=== PATIENT | female | born 1990 | race African-American/Black ===

== ENCOUNTER 2017-06-12 19:12 | Emergency (ER) | payer OTHER ==
[2017-06-12 19:32] VITALS: BP 161/94; PULSE 87; TEMP 99.2; BMI 33.3
[2017-06-12] MEDS ORDERED: PANTOPRAZOLE 40 MG TABLET (FP) PO ONE (20:56)
--- NOTE | 2017-06-12 20:56 | PDOC ---
History of Present Illness - General Chief Complaint: Sore Throat Stated Complaint: LUMP IN THROAT Time Seen by Provider: 06/12/17 20:22 History Source: Patient, Parent(s) (Mother) Exam Limitations: No Limitations - History of Present Illness Initial Comments: 06/12/17 20:51 27yo Female patient with no significant past medical history presents to ED c/o feeling of lump in throat. Patient states symptoms have been ongoing for the past year. She was put on anti-acid medication by director enterprise systems but unable to refill medications due to insurance problems. She denies any other complaints at this time. LNMP: 05-07-2017. Severity: moderate Modifying Factors: worse with: cold therapy, eating, immobilization, medication , movement, rest, other Associated Symptoms: denies: denies symptoms, chest pain, cough, diaphoresis, fever/chills, headaches, loss of appetite, malaise, nausea/vomiting, rash, seizure, shortness of breath, syncope, weakness, other Past History - Travel Traveled outside of the country in the last 30 days: No Close contact w/someone who was outside of country & ill: No - Past Medical History Allergies/Adverse Reactions: Allergies Allergy/AdvReac Type Severity Reaction Status Date / Time Penicillins Allergy Verified 06/12/17 19:32 Home Medications: Ambulatory Orders Lorazepam 0.5 mg PO TID PRN #9 tablet MDD 3 tabs 06/12/17 Pantoprazole Sodium 40 mg PO DAILY #20 tablet. 06/12/17 GI Disorders: Yes (acid reflux) - Suicide/Smoking/Psychosocial Hx Smoking History: Current some day smoker Number of Cigarettes Smoked Daily: 1 Information on smoking cessation initiated: No Substance Use Type: Marijuana Review of Systems - Review of Systems Able to Perform ROS?: Yes Is the patient limited Syriac proficient: No Constitutional: No: Chills, Fever HEENTM: Yes: Throat Pain. No: Throat Swelling All Other Systems: Reviewed and Negative *Physical Exam - Vital Signs Last Vital Signs Temp Pulse Resp BP Pulse Ox 99.2 F 87 18 161/94 99 06/12/17 19:29 06/12/17 19:29 06/12/17 19:29 06/12/17 19:29 06/12/17 19:29 - Physical Exam General Appearance: Yes: Nourished, Appropriately Dressed. No: Apparent Distress, Mild Distress, Moderate Distress, Severe Distress HEENT: positive: EOMI, PETAR, Normal ENT Inspection, Normal Voice, Symmetrical, TMs Normal, Pharynx Normal. negative: Pharyngeal Erythema, Tonsillar Exudate, Tonsillar Erythema, Nasal Congestion, Rhinorrhea, TM Bulging, TM Dull, TM Erythema Neck: positive: Trachea midline, Normal Thyroid, Supple. negative: Rigid, Stridor, Lymphadenopathy (R), Lymphadenopathy (L), Rigidity Respiratory/Chest: positive: Lungs Clear, Normal Breath Sounds. negative: Chest Tender, Respiratory Distress, Accessory Muscle Use, Labored Respiration, Rapid RR, Wheezing Cardiovascular: positive: Regular Rhythm, Regular Rate Extremity: positive: Normal Capillary Refill, Normal Inspection, Normal Range of Motion. negative: Pedal Edema, Swelling, Calf Tenderness, Erythema Integumentary: positive: Normal Color, Dry, Warm Neurologic: positive: sports editor II-XII NML intact, Fully Oriented, Alert, Normal Mood/ Affect, Normal Response, Motor Strength 5/5 *DC/Admit/Observation/Transfer Diagnosis at time of Disposition: GERD (gastroesophageal reflux disease) Qualifiers: Esophagitis presence: without esophagitis Qualified Code(s): K21.9 - Gastro- esophageal reflux disease without esophagitis - Discharge Dispostion Disposition: HOME Condition at time of disposition: Stable Admit: No - Prescriptions Prescriptions: Lorazepam 0.5 mg PO TID PRN #9 tablet MDD 3 tabs PRN Reason: Anxiety Pantoprazole Sodium 40 mg PO DAILY #20 tablet.dr - Referrals Referrals: STAFF,NOT ON [Primary Care Provider] - Berhane Wilkinson MD [Staff Physician] - - Patient Instructions Printed Discharge Instructions: DI for Gastroesophageal Reflux Disease (GERD) Additional Instructions: Follow up with Dr. Wilkinson (Gastroenterology) this week for further evaluation. Take medications as prescribed. Do not drive, drink alcohol or operate heavy machinery while taking Ativan. Follow up with your primary care provider as well. Avoid spicy foods, alcohol, Motrin, Aspirin at this time. Print Language: LATVIAN
[2017-06-12] MEDS ORDERED: PANTOPRAZOLE 40 MG TABLET (FP) ONE (21:00)
== END 2017-06-12 21:02 | disposition home or self-care (01) ==
LOC: JERFT 19:12
DX: K21.9 Gastro-esophageal reflux disease without esophagitis (principal)
CPT/HCPCS: 99281-25

== ENCOUNTER 2019-05-19 10:07 | Emergency (ER) | payer OTHER ==
[2019-05-19 10:21] VITALS: BMI 30.4
[2019-05-19] MEDS ORDERED: METOCLOPRAMIDE HCL INJECTION 10 MG/2 ML VIAL IVPB ONE (10:40)
[2019-05-19] MEDS ORDERED: SODIUM CHLORIDE 1,000 ML IV STA (10:40)
--- NOTE | 2019-05-19 10:47 | PDOC ---
History of Present Illness - General Chief Complaint: Lightheaded Stated Complaint: 13WKS/ DIZZINESS Time Seen by Provider: 05/19/19 10:31 History Source: Patient Exam Limitations: Clinical Condition - History of Present Illness Initial Comments: 05/19/19 10:42 Patient with history of asthma and vertigo at 13 weeks present with complaint of 2 weeks history of persistent dizziness, photophobia and lightheadedness. Patient reported used to take meclizine for her vertigo which she was advised to stop after getting . Patient not currently on any medication for vertigo. Denies nausea, vomiting, headache, chest pain, shortness of breath. Denies united frequency or dysuria, fever or chills. Denies abdominal pains or vaginal bleeding or discharge Timing/Duration: other (2 weeks) Past History - Past Medical History Allergies/Adverse Reactions: Allergies Allergy/AdvReac Type Severity Reaction Status Date / Time metronidazole [From Flagyl] Allergy Verified 05/19/19 10:18 Penicillins Allergy Verified 04/06/18 16:18 Home Medications: Ambulatory Orders Metoclopramide HCl [Reglan -] 10 mg PO Q8H PRN #21 tablet 05/19/19 Asthma: Yes COPD: No GI Disorders: Yes (acid reflux) - Suicide/Smoking/Psychosocial Hx Smoking History: Never smoked Number of Cigarettes Smoked Daily: 1 Hx Alcohol Use: No Drug/Substance Use Hx: No Substance Use Type: Marijuana Review of Systems - Review of Systems Able to Perform ROS?: Yes Is the patient limited Martiniquais proficient: No Constitutional: No: Chills, Fever, Malaise HEENTM: Yes: Symptoms Reported, See HPI, Blurred Vision. No: Eye Pain, Tearing , Recent change in vision, Double Vision, Cataracts, Ear Pain, Ocular Prothesis , Ear Discharge, Nose Pain, Nose Congestion, Tinnitus, Nose Bleeding, Hearing Loss, Throat Pain, Throat Swelling, Mouth Pain, Dental Problems, Difficulty Swallowing, Mouth Swelling, Other Respiratory: No: Symptoms reported, See HPI, Cough, Orthopnea, Shortness of Breath, SOB with Exertion, SOB at Rest, Stridor, Wheezing, Productive cough, Hemoptysis, Other Cardiac (ROS): No: Symptoms Reported, See HPI, Chest Pain, Edema, Irregular Heart Rate, Lightheadedness, Palpitations, Syncope, Chest Tightness, Other ABD/GI: Yes: Symptoms Reported. No: See HPI, Vomiting, Abdominal cramping : No: Symptoms Reported, Burning, Dysuria, Discharge, Frequency, Other ( vaginal bleeding) Musculoskeletal: No: Symptoms Reported Integumentary: No: Symptoms Reported Neurological: Yes: Symptoms reported, See HPI, Dizziness. No: Headache, Numbness, Paresthesia, Weakness All Other Systems: Reviewed and Negative *Physical Exam - Vital Signs Last Vital Signs Temp Pulse Resp BP Pulse Ox 98.5 F 111 H 17 135/79 98 05/19/19 10:18 05/19/19 10:18 05/19/19 10:18 05/19/19 10:18 05/19/19 10:18 - Physical Exam General Appearance: Yes: Nourished, Appropriately Dressed. No: Mild Distress HEENT: positive: PETAR, Normal ENT Inspection, TMs Normal, Pharynx Normal Neck: positive: Supple Respiratory/Chest: positive: Lungs Clear, Normal Breath Sounds. negative: Respiratory Distress, Accessory Muscle Use Cardiovascular: positive: Regular Rhythm, Regular Rate. negative: Murmur Gastrointestinal/Abdominal: positive: Normal Bowel Sounds, Flat, Soft. negative : Tender Musculoskeletal: positive: Normal Inspection Extremity: positive: Normal Capillary Refill, Normal Inspection Integumentary: positive: Normal Color Neurologic: positive: meeting facilitator II-XII NML intact, Fully Oriented, Alert, Normal Mood/ Affect, Normal Response ED Treatment Course - LABORATORY CBC & Chemistry Diagram: 05/19/19 11:05 05/19/19 11:05 Medical Decision Making - Medical Decision Making 05/19/19 10:44 05/19/19 10:42 Patient with history of asthma and vertigo at 13 weeks present with complaint of 2 weeks history of persistent dizziness, photophobia and lightheadedness. Patient reported used to take meclizine for her vertigo which she was advised to stop after getting . Patient not currently on any medication for vertigo. Denies nausea, vomiting, headache, chest pain, shortness of breath. Denies united frequency or dysuria, fever or chills. Denies abdominal pains or vaginal bleeding or discharge Normal neuro exam. Patient in no acute distress. Patient tachycardic. Symptoms likely vertigo. CBC, CMP, UA urine culture labs ordered. IV hydration with 1 L normal saline and Reglan 10 mg IV ordered for vertigo. Reassess after medication 05/19/19 13:28 CBC and chemistry lab are unremarkable. UA with no acute pathology. Patient reported improved symptoms with IV hydration and Reglan. Patient reported pressure behind bilateral eyes which is caused by sinus congestion. Patient advised on mist therapy to help with sinus congestion and stable for discharge on Reglan when necessary for vertigo with OB follow-up *DC/Admit/Observation/Transfer Diagnosis at time of Disposition: Orthostatic dizziness, Vertigo Sinusitis Qualifiers: Sinusitis location: unspecified location Chronicity: acute Recurrence: non- recurrent Qualified Code(s): J01.90 - Acute sinusitis, unspecified - Discharge Dispostion Disposition: HOME Condition at time of disposition: Stable Decision to Admit order: No - Prescriptions Prescriptions: Metoclopramide HCl [Reglan -] 10 mg PO Q8H PRN #21 tablet PRN Reason: vertigo - Referrals - Patient Instructions Printed Discharge Instructions: DI for Vertigo, DI for Sinusitis Additional Instructions: Take prescribed medication as needed for vertigo. Increase fluid intake. Use mist therapy as discussed for sinus congestion. Follow-up with the CORPORATE STRATEGIST - Post Discharge Activity
[2019-05-19] MEDS ORDERED: METOCLOPRAMIDE HCL INJECTION 10 MG/2 ML VIAL ONE (11:18)
[2019-05-19 11:21] LABS: URINE APPEARANCE TURBID; URINE BILIRUBIN NEGATIVE (NEGATIVE); URINE COLOR YELLOW; URINE GLUCOSE (UA) NEGATIVE (NEGATIVE); URINE KETONE NEGATIVE (NEGATIVE); URINE LEUK ESTERASE NEGATIVE (NEGATIVE); URINE NITRITE NEGATIVE (NEGATIVE); URINE PROTEIN NEGATIVE (NEGATIVE); URINE UROBILINOGEN 0.2 mg/dL (0.2-1.0)
[2019-05-19 11:26] LABS: BASO % 0.3 % (0-2.0); EOS % 0.3 % (0-4.5); HEMATOCRIT 37.8 % (32.4-45.2); HEMOGLOBIN 12.9 GM/dL (10.7-15.3); LYMPH % 17.2 % (8-40); MCH 30.1 pg (25.7-33.7); MCHC 34.1 g/dl (32.0-36.0); MEAN CELL VOLUME 88.3 fl (80-96); MEAN PLT VOLUME 9.3 fl (7.5-11.1); MONO % 3.7 % (3.8-10.2); NEUT % 78.5 % (42.8-82.8); PLATELET COUNT 185 K/MM3 (134-434); RBC 4.28 M/mm3 (3.60-5.2); RDW 13.8 % (11.6-15.6); WHITE BLOOD COUNT 9.5 K/mm3 (4.0-10.0)
[2019-05-19 11:55] LABS: ALBUMIN 3.3 g/dl (3.4-5.0); BILIRUBIN,TOTAL 0.2 mg/dL (0.2-1); BLOOD UREA NITROGEN 4.3 mg/dL (7-18); CALCIUM 8.9 mg/dL (8.5-10.1); CREATININE 0.5 mg/dL (0.55-1.3); POTASSIUM 3.8 mmol/L (3.5-5.1)
[2019-05-19 12:17] VITALS: BP 112/75; PULSE 88; TEMP 98.2
--- NOTE | 2019-05-19 12:34 | PDOC ---
*Physical Exam - Vital Signs Last Vital Signs Temp Pulse Resp BP Pulse Ox 98.2 F 88 16 112/75 100 05/19/19 12:15 05/19/19 12:15 05/19/19 12:15 05/19/19 12:15 05/19/19 12:15 - Physical Exam General Appearance: Yes: Nourished Respiratory/Chest: positive: Lungs Clear, Normal Breath Sounds Cardiovascular: positive: Regular Rhythm, Regular Rate, S1, S2 Gastrointestinal/Abdominal: positive: Normal Bowel Sounds, Flat, Soft. negative : Tender Extremity: positive: Normal Capillary Refill Integumentary: positive: Normal Color, Dry, Warm Neurologic: positive: Fully Oriented, Alert, Normal Mood/Affect ED Treatment Course - LABORATORY CBC & Chemistry Diagram: 05/19/19 11:05 05/19/19 11:05 - ADDITIONAL ORDERS Additional order review: Laboratory Results 05/19/19 05/19/19 11:05 11:00 Sodium 139 Potassium 3.8 Chloride 108 H Carbon Dioxide 25 Anion Gap 6 L BUN 4.3 L Creatinine 0.5 L Est GFR (CKD-EPI)AfAm 149.47 Est GFR (CKD-EPI)NonAf 128.97 Random Glucose 81 Calcium 8.9 Total Bilirubin 0.2 AST 13 L ALT 20 Alkaline Phosphatase 47 Total Protein 7.0 Albumin 3.3 L Urine Color Yellow Urine Appearance Turbid Urine pH 8.0 D Ur Specific [place] 1.012 Urine Protein Negative Urine Glucose (UA) Negative Urine Ketones Negative Urine Blood Negative Urine Nitrite Negative Urine Bilirubin Negative Urine Urobilinogen 0.2 Ur Leukocyte Esterase Negative 05/19/19 11:05 RBC 4.28 MCV 88.3 MCHC 34.1 RDW 13.8 MPV 9.3 D Neutrophils % 78.5 D Lymphocytes % 17.2 D Monocytes % 3.7 L Eosinophils % 0.3 Basophils % 0.3 - Medications Given in the ED: ED Medications Discontinued Medications Generic Name Dose Route Start Last Admin Trade Name Freq PRN Reason Stop Dose Admin Sodium Chloride 1,000 mls @ 1,000 mls/hr 05/19/19 10:40 05/19/19 11:25 Normal Saline - IV 05/19/19 11:39 1,000 mls/hr ASDIR STA Administration Metoclopramide HCl 10 mg 05/19/19 10:40 05/19/19 11:20 Reglan Injection - IVPB 08/29/19 10:41 10 mg ONCE ONE Administration Medical Decision Making - Medical Decision Making 05/19/19 12:28 29 yo F currently 13 weeks by LMP 02/14/19 here with co intractable n/v andvertigo. pt has had vertigo prior to being many times. is followed by dr Carlin at [facility]. states ob did not want to prescribe her zofran or meclizine due to h/o multiple miscarriages. pt has daily 3 - 4 episode of vomiting . no diarrhea. is feeling more dizzy today. 05/19/19 12:31 on exam pt awake alert lungs clear bilat heart rrr no mrg abd soft gravid nontender. awake alert nuero CN II - XII intact. normal finger to nose. 05/19/19 12:33 plan iv hydration, ob check for well being transabdominal us, trial po. pt seen and examined with EMMANUELLE Pastor, agree with assessment and plan. 05/19/19 12:55 focused transabdominal ultrasound heart rate 162 bpm, 12 wks plus few days. pcp dr Carlin [phone] *DC/Admit/Observation/Transfer Diagnosis at time of Disposition: Orthostatic dizziness - Referrals - Patient Instructions - Post Discharge Activity
== END 2019-05-19 14:01 | disposition home or self-care (01) ==
LOC: JER 10:07
PROC: 3E0337Z Introduction of Electrolytic and Water Balance Substance into Peripheral Vein, Percutaneous Approach (ICD-10-PCS; principal; 2019-05-19)
PROC: 3E033GC Introduction of Other Therapeutic Substance into Peripheral Vein, Percutaneous Approach (ICD-10-PCS; 2019-05-19)
DX: O26.891 Other specified pregnancy related conditions, first trimester (principal); R42 Dizziness and giddiness; J01.90 Acute sinusitis, unspecified; Z3A.13 13 weeks gestation of pregnancy
CPT/HCPCS: 36415; 76815; 80053; 81003; 85025; 87077; 87086; 99283-25; J7030

== ENCOUNTER 2019-05-23 13:03 | Emergency (ER) | payer OTHER ==
[2019-05-23 13:09] VITALS: TEMP 99; BMI 30.4
--- NOTE | 2019-05-23 14:24 | PDOC ---
History of Present Illness - General Chief Complaint: Nausea/Vomiting Stated Complaint: SICK/12WKS PREG. Time Seen by Provider: 05/23/19 14:23 - History of Present Illness Initial Comments: 05/23/19 14:26 29 year old woman with history of asthma and vertigo currently 13 weeks presents w/ 1month of visual aura that is worsening of the past week and with headache and nausea. The patient reports that since was seen here 3 days ago for similar complaints she went outside to a picnic and her symptoms worsened. She has a long history of vertigo and has an upcoming appointment with her specialist on 2018. She denies any fever, chest pain, shortness of breath abdominal pain, dysuria, hematuria, diarrhea or constipation. ROS GENERAL/CONSTITUTIONAL: No fever or chills. No weakness. HEAD, EYES, EARS, NOSE AND THROAT: No change in vision. No ear pain or discharge. No sore throat. CARDIOVASCULAR: No chest pain or shortness of breath RESPIRATORY: No cough, wheezing, or hemoptysis. GASTROINTESTINAL: No nausea, vomiting, diarrhea or constipation. GENITOURINARY: No dysuria, frequency, or change in urination. MUSCULOSKELETAL: No joint or muscle swelling or pain. No neck or back pain. SKIN: No rash NEUROLOGIC: + headache, vertigo No loss of consciousness, or change in strength/ sensation. PE GENERAL: Awake, alert, and fully oriented, in no acute distress HEAD: No signs of trauma, normocephalic, atraumatic EYES: PERRLA, EOMI, sclera anicteric, conjunctiva clear ENT: oropharynx clear without exudates. Moist mucosa NECK: Normal ROM, supple LUNGS: No distress, speaks full sentences, clear to auscultation bilaterally HEART: Regular rate and rhythm, normal S1 and S2, no murmurs, rubs or gallops, peripheral pulses normal and equal bilaterally. ABDOMEN: Soft, nontender, normoactive bowel sounds. No guarding, no rebound. No masses EXTREMITIES : Normal inspection, Normal range of motion, no edema. No clubbing or cyanosis. NEUROLOGICAL: Cranial nerves II through XII grossly intact. Normal speech, no focal sensorimotor deficits SKIN: Warm, Dry, normal turgor, no rashes or lesions noted MDM DDX including but not limited to: migraine with aura vs vertigo patient normotensive, less likely preeclampsia r/o infectious W/U: - cbc, cmp, beta, ua TX: - reglan, if ED Course: Patient recieved reglan at last visit three days ago with improvement of symptoms Patient perseverative of MS diagnosis, informed she will need to follow up with her specialist and PCP for further tests and workup Rachel Izquierdo, PGY2 Emergency Medicine 05/23/19 14:48 Past History - Past Medical History Allergies/Adverse Reactions: Allergies Allergy/AdvReac Type Severity Reaction Status Date / Time metronidazole [From Flagyl] Allergy Verified 05/23/19 13:05 Penicillins Allergy Verified 05/23/19 13:05 Home Medications: Ambulatory Orders Metoclopramide HCl [Reglan -] 10 mg PO Q8H PRN #21 tablet 05/19/19 Asthma: Yes COPD: No GI Disorders: Yes (acid reflux) Other medical history: vertigo - Immunization History Immunization Up to Date: Yes - Suicide/Smoking/Psychosocial Hx Smoking History: Never smoked Number of Cigarettes Smoked Daily: 1 Hx Alcohol Use: No Drug/Substance Use Hx: No Substance Use Type: Marijuana *Physical Exam - Vital Signs Last Vital Signs Temp Pulse Resp BP Pulse Ox 99.0 F 103 H 18 125/78 99 05/23/19 13:06 05/23/19 13:06 05/23/19 13:06 05/23/19 13:06 05/23/19 13:06 ED Treatment Course - LABORATORY CBC & Chemistry Diagram: 05/23/19 15:00 05/23/19 15:00 *DC/Admit/Observation/Transfer Diagnosis at time of Disposition: Headache, Vertigo - Discharge Dispostion Disposition: HOME Condition at time of disposition: Stable Decision to Admit order: No - Referrals Referrals: Desmond Regan MD [Staff Physician] - - Patient Instructions Printed Discharge Instructions: DI for Headache, DI for Vertigo Additional Instructions: You were seen in the ED for complaints of vertigo and headache In the ED you were evaluated with labwork. Your results were largely unremarkable. There does not appear to be an acute need for immediate hospitalization. You are advised to follow up with your Primary Care Physician within 1 week. You were given a referral to Neurology and should make an appointment in 1 week Keep you upcoming appointment with your vertigo specialist on May.30 You were given a prescription for Meclizine at a previous visit, please pick this up at the pharmacy and take as prescribed. Return to the ED immediately if you experience worsening headache, vertigo, visual aura, nausea, vomiting or chest pain. - Post Discharge Activity
[2019-05-23] MEDS ORDERED: SODIUM CHLORIDE 1,000 ML IV SCH (14:30)
[2019-05-23] MEDS ORDERED: METOCLOPRAMIDE HCL INJECTION 10 MG/2 ML VIAL IVPUSH ONE (14:46)
[2019-05-23] MEDS ORDERED: METOCLOPRAMIDE HCL INJECTION 10 MG/2 ML VIAL ONE (15:03)
[2019-05-23 15:08] LABS: BASO % 0.5 % (0-2.0); EOS % 0.4 % (0-4.5); HEMATOCRIT 39.6 % (32.4-45.2); HEMOGLOBIN 13.5 GM/dL (10.7-15.3); LYMPH % 15.3 % (8-40); MCH 30.1 pg (25.7-33.7); MEAN CELL VOLUME 88.5 fl (80-96); MEAN PLT VOLUME 9.3 fl (7.5-11.1); MONO % 5.1 % (3.8-10.2); NEUT % 78.7 % (42.8-82.8); PLATELET COUNT 215 K/MM3 (134-434); RBC 4.48 M/mm3 (3.60-5.2); RDW 13.7 % (11.6-15.6)
[2019-05-23] MEDS ORDERED: ACETAMINOPHEN 1000 MG/100 ML VIAL (NON FORMULARY) IVPB ONE (15:22)
[2019-05-23 15:32] LABS: URINE APPEARANCE CLEAR; URINE BILIRUBIN NEGATIVE (NEGATIVE); URINE COLOR YELLOW; URINE GLUCOSE (UA) NEGATIVE (NEGATIVE); URINE KETONE 1+ (NEGATIVE); URINE LEUK ESTERASE NEGATIVE (NEGATIVE); URINE NITRITE NEGATIVE (NEGATIVE); URINE PROTEIN NEGATIVE (NEGATIVE); URINE UROBILINOGEN 0.2 mg/dL (0.2-1.0)
[2019-05-23 15:52] LABS: ALBUMIN 3.6 g/dl (3.4-5.0); BILIRUBIN,TOTAL 0.2 mg/dL (0.2-1); BLOOD UREA NITROGEN 3.2 mg/dL (7-18); CALCIUM 9.2 mg/dL (8.5-10.1); CREATININE 0.6 mg/dL (0.55-1.3); POTASSIUM 3.9 mmol/L (3.5-5.1); TOT PROT 7.6 g/dl (6.4-8.2)
--- NOTE | 2019-05-23 16:01 | PDOC ---
Attending Attestation - Resident Resident Name: Rachel Izquierdo - ED Attending Attestation I have performed the following: I have examined & evaluated the patient, The case was reviewed & discussed with the resident, I agree w/resident's findings & plan, Exceptions are as noted - HPI HPI: 05/23/19 16:10 29 F , @ 13 weeks , presents to ED with 3 months of intermittent headaches and visual auras. Pt states that she has been getting frequent headaches ever since she became . Endorses right sided headache. It is associated with visual auras that pt describes as squiggly lines in the periphery of her vision. Denies any vision loss or blurred vision. Pt denies h/ o migraines prior to . Pt also endorses intermittent vertigo, which she has had for the past year. Pt denies N/V. Denies F/C. Denies weakness/ numbness in any extremity. - Physicial Exam PE: 05/23/19 16:02 GENERAL: Awake, alert, and fully oriented, in no acute distress. HEAD: No signs of trauma EYES: PERRLA, EOMI, sclera anicteric, conjunctiva clear ENT: Auricles normal inspection, hearing grossly normal, nares patent, oropharynx clear without exudates. Moist mucosa NECK: Nontender, no stepoffs, Normal ROM, supple, no lymphadenopathy, JVD, or masses LUNGS: Breath sounds equal, clear to auscultation bilaterally. No wheezes, and no crackles HEART: Regular rate and rhythm, normal S1 and S2, no murmurs, rubs or gallops ABDOMEN: Soft, nontender, normoactive bowel sounds. No guarding, no rebound. No masses EXTREMITIES: Normal range of motion, no edema. No clubbing or cyanosis. No cords, erythema, or tenderness NEUROLOGICAL: Cranial nerves II through XII intact. 5/5 strength and sensation in all extremities, Normal speech, normal gait, normal cerebellar function SKIN: Warm, Dry, normal turgor, no rashes or lesions noted. - Medical Decision Making 05/23/19 16:20 29 F with visual aura and headache. Likely migraine headache. Pt with no neuro deficits on exam, no visual field deficits. - Labs - IV tylenol, fluids, reglan 05/23/19 16:20 Labs wnl Pt reassessed after meds - now feels completely better Pt advised to f/u with neurology as scheduled this month. Pt is well appearing, with normal vitals. Clinically stable for DC at this time. I discussed the physical exam findings, ancillary test results and final diagnoses with the patient. I answered all of the patient's questions. The patient was satisfied with the care received and felt comfortable with the discharge plan and treatment plan. The patient agrees to follow up with the primary care physician within 24-72 hours.
[2019-05-23 16:40] VITALS: BP 116/71; PULSE 100
== END 2019-05-23 16:39 | disposition home or self-care (01) ==
LOC: JER 13:03
PROC: 3E033NZ Introduction of Analgesics, Hypnotics, Sedatives into Peripheral Vein, Percutaneous Approach (ICD-10-PCS; principal; 2019-05-23)
PROC: 3E033GC Introduction of Other Therapeutic Substance into Peripheral Vein, Percutaneous Approach (ICD-10-PCS; 2019-05-23)
PROC: 3E033GC Introduction of Other Therapeutic Substance into Peripheral Vein, Percutaneous Approach (ICD-10-PCS; 2019-05-23)
DX: O26.891 Other specified pregnancy related conditions, first trimester (principal); R51 Headache; Z3A.13 13 weeks gestation of pregnancy
CPT/HCPCS: 36415; 80053; 81003; 84702; 85025; 87086; 96374; 96375; 99282-25; J0131; J7030

== ENCOUNTER 2021-09-05 21:26 | Emergency (ER) | payer OTHER ==
[2021-09-05 22:01] VITALS: BP 127/72; PULSE 99; TEMP 98; BMI 35.7
== END 2021-09-05 23:43 | disposition home or self-care (01) ==
LOC: JER 21:26
DX: N64.52 Nipple discharge (principal)
CPT/HCPCS: 99283-25

== ENCOUNTER 2023-04-26 19:04 | Emergency (ER) | payer OTHER ==
[2023-04-26 19:31] VITALS: BP 145/77; PULSE 82; RESP 18; TEMP 98; BMI 34.1
[2023-04-26 21:16] LABS: BASO % 0.2 % (0-2.0); EOS % 0.9 % (0-4.5); HEMATOCRIT 40.2 % (32.4-45.2); HEMOGLOBIN 13.6 GM/dL (10.7-15.3); LYMPH % 33.4 % (8-40); MCH 29.2 pg (25.7-33.7); MCHC 33.9 g/dl (32.0-36.0); MEAN CELL VOLUME 86.1 fl (80-96); MEAN PLT VOLUME 9.7 fl (7.5-11.1); MONO % 5.5 % (3.8-10.2); PLATELET COUNT 189 10^3/uL (134-434); RBC 4.67 M/mm3 (3.60-5.2); RDW 13.6 % (11.6-15.6); WHITE BLOOD COUNT 5.4 K/mm3 (4.0-10.0)
[2023-04-26] MEDS ORDERED: ONDANSETRON 4 MG/2 ML VIAL IVPUSH ONE (21:19)
[2023-04-26] MEDS ORDERED: ACETAMINOPHEN 1000 MG/100 ML BAG IVPB ONE (21:19)
[2023-04-26] MEDS ORDERED: ONDANSETRON 4 MG/2 ML VIAL ONE (21:25)
[2023-04-26] MEDS ORDERED: ACETAMINOPHEN INJECTION 100 ML IVPB ONE (21:25)
[2023-04-26 21:30] LABS: EPI CELLS >36 /uL (0-25.1); HYALINE CASTS 0 /uL (0-3.1); URINE APPEARANCE CLEAR; URINE BACTERIA 371 /uL (0-1359); URINE BILIRUBIN NEGATIVE (NEGATIVE); URINE COLOR YELLOW; URINE GLUCOSE (UA) NEGATIVE (NEGATIVE); URINE KETONE NEGATIVE (NEGATIVE); URINE LEUK ESTERASE TRACE (NEGATIVE); URINE NITRITE NEGATIVE (NEGATIVE); URINE PROTEIN NEGATIVE (NEGATIVE); URINE RBC 3 /uL (0-23.9); URINE UROBILINOGEN 0.2 mg/dL (0.2-1.0); URINE WBC 55 /uL (0-25.8)
[2023-04-26 21:57] LABS: POTASSIUM 4.1 mmol/L (3.5-5.1)
[2023-04-26 22:00] LABS: CALCIUM 8.7 mg/dL (8.5-10.1)
[2023-04-26 22:01] LABS: ALBUMIN 3.9 g/dl (3.4-5.0); BLOOD UREA NITROGEN 9.7 mg/dL (7-18)
[2023-04-26 22:04] LABS: CREATININE 0.7 mg/dL (0.55-1.3)
[2023-04-26 22:06] LABS: BILIRUBIN,TOTAL 0.2 mg/dL (0.2-1); TOT PROT 7.6 g/dl (6.4-8.2)
== END 2023-04-27 00:12 | disposition home or self-care (01) ==
LOC: JER 19:04
PROC: 3E033NZ Introduction of Analgesics, Hypnotics, Sedatives into Peripheral Vein, Percutaneous Approach (ICD-10-PCS; principal; 2023-04-26)
PROC: 3E033GC Introduction of Other Therapeutic Substance into Peripheral Vein, Percutaneous Approach (ICD-10-PCS; 2023-04-26)
DX: R11.2 Nausea with vomiting, unspecified (principal); R30.0 Dysuria
CPT/HCPCS: 36415; 80053; 81003; 82150; 83690; 84703; 85025; 87086; 87491; 87591; 99284-25

== ENCOUNTER 2023-08-23 00:51 | Emergency (ER) | payer OTHER ==
[2023-08-23 01:01] VITALS: RESP 18; BMI 34.4
[2023-08-23] MEDS ORDERED: ACETAMINOPHEN 1000 MG/100 ML BAG IVPB ONE (02:17)
[2023-08-23] MEDS ORDERED: ACETAMINOPHEN INJECTION 100 ML IVPB ONE (02:35)
[2023-08-23 03:10] LABS: BASO % 0.2 % (0-2.0); EOS % 0.4 % (0-4.5); HEMATOCRIT 38.8 % (32.4-45.2); LYMPH % 10.1 % (8-40); MCH 29.3 pg (25.7-33.7); MCHC 33.4 g/dl (32.0-36.0); MEAN CELL VOLUME 87.7 fl (80-96); MEAN PLT VOLUME 9.9 fl (7.5-11.1); MONO % 6.5 % (3.8-10.2); NEUT % 82.8 % (42.8-82.8); PLATELET COUNT 170 10^3/uL (134-434); RBC 4.42 M/mm3 (3.60-5.2); WHITE BLOOD COUNT 5.7 K/mm3 (4.0-10.0)
[2023-08-23 03:14] LABS: EPI CELLS 14 /uL (0-25.1); HCG,QUALITATIVE URINE Negative; HYALINE CASTS 1 /uL (0-3.1); URINE APPEARANCE TURBID; URINE BACTERIA 724 /uL (0-1359); URINE BILIRUBIN NEGATIVE (NEGATIVE); URINE COLOR YELLOW; URINE GLUCOSE (UA) NEGATIVE (NEGATIVE); URINE KETONE 1+ (NEGATIVE); URINE LEUK ESTERASE TRACE (NEGATIVE); URINE NITRITE NEGATIVE (NEGATIVE); URINE PROTEIN NEGATIVE (NEGATIVE); URINE RBC 12 /uL (0-23.9); URINE WBC 8 /uL (0-25.8)
[2023-08-23 03:43] LABS: POTASSIUM 3.7 mmol/L (3.5-5.1)
[2023-08-23 03:45] LABS: CALCIUM 8.4 mg/dL (8.5-10.1)
[2023-08-23 03:46] LABS: ALBUMIN 3.6 g/dl (3.4-5.0); BLOOD UREA NITROGEN 11.4 mg/dL (7-18)
[2023-08-23 03:48] LABS: CREATININE 0.7 mg/dL (0.55-1.3)
[2023-08-23 03:50] LABS: BILIRUBIN,TOTAL 0.3 mg/dL (0.2-1); TOT PROT 7.1 g/dl (6.4-8.2)
[2023-08-23 05:00] VITALS: BP 113/76; PULSE 90; TEMP 98.7
== END 2023-08-23 05:15 | disposition home or self-care (01) ==
LOC: JER 00:51
PROC: 3E033NZ Introduction of Analgesics, Hypnotics, Sedatives into Peripheral Vein, Percutaneous Approach (ICD-10-PCS; principal; 2023-08-23)
DX: R10.31 Right lower quadrant pain (principal); M25.511 Pain in right shoulder; R11.10 Vomiting, unspecified; U07.1 COVID-19
CPT/HCPCS: 0241U-QW; 36415; 76830-TC; 80053; 81003; 83690; 84703; 85025; 87086; 99284-25

== ENCOUNTER 2023-10-20 18:03 | Emergency (ER) | payer OTHER ==
[2023-10-20 18:11] VITALS: RESP 20; TEMP 98.2; BMI 34.4
[2023-10-20 19:31] LABS: BASO % 0.2 % (0-2.0); EOS % 0.8 % (0-4.5); HEMATOCRIT 37.7 % (32.4-45.2); HEMOGLOBIN 12.6 GM/dL (10.7-15.3); LYMPH % 29.3 % (8-40); MCH 29.9 pg (25.7-33.7); MCHC 33.5 g/dl (32.0-36.0); MEAN CELL VOLUME 89.2 fl (80-96); MEAN PLT VOLUME 9.3 fl (7.5-11.1); MONO % 5.8 % (3.8-10.2); NEUT % 63.9 % (42.8-82.8); PLATELET COUNT 202 10^3/uL (134-434); RBC 4.22 M/mm3 (3.60-5.2); RDW 14.5 % (11.6-15.6); WHITE BLOOD COUNT 7.8 K/mm3 (4.0-10.0)
[2023-10-20 19:37] LABS: EPI CELLS >36 /uL (0-25.1); HCG,QUALITATIVE URINE Negative; HYALINE CASTS 1 /uL (0-3.1); PH,URINE 6.5 (5.0-8.0); URINE APPEARANCE CLEAR; URINE BACTERIA 389 /uL (0-1359); URINE BILIRUBIN NEGATIVE (NEGATIVE); URINE COLOR YELLOW; URINE GLUCOSE (UA) NEGATIVE (NEGATIVE); URINE KETONE NEGATIVE (NEGATIVE); URINE LEUK ESTERASE 1+ (NEGATIVE); URINE NITRITE NEGATIVE (NEGATIVE); URINE PROTEIN NEGATIVE (NEGATIVE); URINE RBC 11 /uL (0-23.9); URINE UROBILINOGEN 0.2 mg/dL (0.2-1.0); URINE WBC 57 /uL (0-25.8)
[2023-10-20] MEDS ORDERED: LIDOCAINE 4% PATCH TP ONE ×2 (19:46→20:23)
[2023-10-20] MEDS ORDERED: ACETAMINOPHEN 1000 MG/100 ML BAG IVPB ONE (19:46)
[2023-10-20] MEDS ORDERED: FAMOTIDINE 20 MG/50 ML IVPB 20 MG/50 ML MG IVPB ONE ×2 (19:49→20:01)
[2023-10-20] MEDS ORDERED: MAG HYDROX/AL HYDROX/SIMETH 30 ML UNIT-DOSE CUP PO ONE (19:49)
[2023-10-20] MEDS ORDERED: ONDANSETRON 4 MG/2 ML VIAL IVPUSH ONE (19:50)
[2023-10-20] MEDS ORDERED: MAG HYDROX/AL HYDROX/SIMETH 30 ML UNIT-DOSE CUP ONE (20:01)
[2023-10-20] MEDS ORDERED: ONDANSETRON 4 MG/2 ML VIAL ONE (20:01)
[2023-10-20] MEDS ORDERED: ACETAMINOPHEN INJECTION 100 ML IVPB ONE (20:01)
[2023-10-20 20:28] LABS: POTASSIUM 4.1 mmol/L (3.5-5.1)
[2023-10-20 20:30] LABS: ALBUMIN 3.5 g/dl (3.4-5.0); BLOOD UREA NITROGEN 10.4 mg/dL (7-18); CALCIUM 8.7 mg/dL (8.5-10.1)
[2023-10-20 20:33] LABS: CREATININE 0.7 mg/dL (0.55-1.3)
[2023-10-20 20:35] LABS: BILIRUBIN,TOTAL 0.3 mg/dL (0.2-1); TOT PROT 7.2 g/dl (6.4-8.2)
[2023-10-20] MEDS ORDERED: LIDOCAINE PATCH REMOVAL MC ONE (22:00)
[2023-10-21] MEDS ORDERED: KETOROLAC TROMETHAMINE 30 MG/1 ML VIAL IVPUSH ONE (01:17)
[2023-10-21] MEDS ORDERED: KETOROLAC TROMETHAMINE 30 MG/1 ML VIAL ONE (01:26)
[2023-10-21 01:41] VITALS: BP 118/77; PULSE 77
== END 2023-10-21 01:35 | disposition home or self-care (01) ==
LOC: JER 18:03
PROC: 3E033GC Introduction of Other Therapeutic Substance into Peripheral Vein, Percutaneous Approach (ICD-10-PCS; principal; 2023-10-20)
PROC: 3E033GC Introduction of Other Therapeutic Substance into Peripheral Vein, Percutaneous Approach (ICD-10-PCS; 2023-10-20)
PROC: 3E033NZ Introduction of Analgesics, Hypnotics, Sedatives into Peripheral Vein, Percutaneous Approach (ICD-10-PCS; 2023-10-20)
DX: J18.9 Pneumonia, unspecified organism (principal); N83.291 Other ovarian cyst, right side; R10.31 Right lower quadrant pain; R19.7 Diarrhea, unspecified; M25.511 Pain in right shoulder; R68.84 Jaw pain; N94.6 Dysmenorrhea, unspecified; R14.0 Abdominal distension (gaseous); R10.11 Right upper quadrant pain; Z20.822 Contact with and (suspected) exposure to COVID-19
CPT/HCPCS: 0241U-QW; 36415; 74177-TC; 76830-TC; 80053; 81003; 83690; 84703; 85025; 87086; 99285-25; J0131; Q9967

== ENCOUNTER 2025-01-29 16:15 | Emergency (ER) | payer OTHER ==
[2025-01-29 16:36] VITALS: BP 137/87; PULSE 118; RESP 16; TEMP 98.8; BMI 36.1
[2025-01-29] MEDS: METOCLOPRAMIDE HCL INJECTION 10 MG/2 ML VIAL IVPUSH ONE (17:33)
[2025-01-29 17:41] LABS: ABSOLUTE IMMATURE GRANULOCYTES 0.02 x10^3/uL (0.0-0.031); BASOPHILS # 0.01 x10^3/uL (0.01-0.08); EOSINOPHIL % 1.5 % (0.7-5.8); EOSINOPHILS # 0.12 x10^3/uL (0.04-0.36); HEMATOCRIT 41.5 % (34.1-44.9); HEMOGLOBIN 13.6 g/dL (11.2-15.7); MCHC 32.8 g/dl (32.2-35.5); MEAN CELL VOLUME 89.8 fl (79.4-94.8); MEAN PLT VOLUME 11.2 fl (9.4-12.3); MONOCYTE # 0.49 x10^3/uL (0.24-0.86); MONOCYTE % 6.3 % (4.7-12.5); PLATELET COUNT 233 x10^3/uL (182-369); RDW 12.8 % (12.1-16.8)
[2025-01-29 17:48] LABS: POTASSIUM 4.7 mmol/L (3.5-5.1)
[2025-01-29 17:50] LABS: CALCIUM 9.5 mg/dL (8.5-10.1)
[2025-01-29 17:51] LABS: ALBUMIN 3.6 g/dl (3.4-5.0); BLOOD UREA NITROGEN 10.1 mg/dL (7-18); INR 1.01 (0.83-1.09); MAGNESIUM 2.3 mg/dL (1.8-2.4)
[2025-01-29 17:54] LABS: ACTIVATED PTT 29.3 SECONDS (25.2-36.5); CREATININE 0.8 mg/dL (0.55-1.3)
[2025-01-29 17:55] LABS: BILIRUBIN,TOTAL 0.3 mg/dL (0.2-1); TOT PROT 7.7 g/dl (6.4-8.2)
[2025-01-29] MEDS ORDERED: ACETAMINOPHEN INJECTION 100 ML ONE (18:12)
[2025-01-29] MEDS: ACETAMINOPHEN 1000 MG/100 ML BAG IVPB ONE (18:51)
[2025-01-29] MEDS: SODIUM CHLORIDE 0.9% 500 ML INFUS.BAG IV ONE (18:52)
== END 2025-01-29 20:35 | disposition home or self-care (01) ==
LOC: JER 16:15
PROC: 3E033NZ Introduction of Analgesics, Hypnotics, Sedatives into Peripheral Vein, Percutaneous Approach (ICD-10-PCS; principal; 2025-01-29)
DX: R51.9 Headache, unspecified (principal); R42 Dizziness and giddiness; R11.2 Nausea with vomiting, unspecified
CPT/HCPCS: 36415; 70450-TC; 70460-TC; 80053; 83735; 84703; 85025; 85610; 85730; 99285-25; J0131; Q9967

== ENCOUNTER 2025-02-12 16:06 | Emergency (ER) | payer OTHER ==
[2025-02-12 16:20] VITALS: BP 152/80; PULSE 83; RESP 16; TEMP 98.1; BMI 36.3
[2025-02-12] MEDS ORDERED: MAG HYDROX/AL HYDROX/SIMETH 30 ML UNIT-DOSE CUP ONE (17:21)
[2025-02-12] MEDS ORDERED: FAMOTIDINE 20 MG/50 ML IVPB 20 MG/50 ML MG IVPB ONE (17:21)
[2025-02-12] MEDS ORDERED: ACETAMINOPHEN INJECTION 100 ML ONE (17:21)
[2025-02-12 17:31] LABS: ABSOLUTE IMMATURE GRANULOCYTES 0.02 x10^3/uL (0.0-0.031); BASOPHILS # 0.01 x10^3/uL (0.01-0.08); EOSINOPHIL % 1.2 % (0.7-5.8); EOSINOPHILS # 0.08 x10^3/uL (0.04-0.36); HEMATOCRIT 40.1 % (34.1-44.9); HEMOGLOBIN 13.3 g/dL (11.2-15.7); MCHC 33.2 g/dl (32.2-35.5); MEAN CELL VOLUME 88.5 fl (79.4-94.8); MEAN PLT VOLUME 11.2 fl (9.4-12.3); MONOCYTE # 0.37 x10^3/uL (0.24-0.86); MONOCYTE % 5.3 % (4.7-12.5); PLATELET COUNT 221 x10^3/uL (182-369); RDW 12.6 % (12.1-16.8)
[2025-02-12] MEDS: MAG HYDROX/AL HYDROX/SIMETH 30 ML UNIT-DOSE CUP PO ONE (17:31)
[2025-02-12] MEDS: SODIUM CHLORIDE 500 ML IV STA (17:31)
[2025-02-12] MEDS: FAMOTIDINE 20 MG/50 ML IVPB 20 MG/50 ML MG IVPB ONE (17:32)
[2025-02-12] MEDS: ACETAMINOPHEN 1000 MG/100 ML BAG IVPB ONE (17:32)
[2025-02-12 17:49] LABS: CHLORIDE 108 mmol/L (98-107); POTASSIUM 4.1 mmol/L (3.5-5.1); SODIUM 140 mmol/L (136-145)
[2025-02-12 17:51] LABS: ALBUMIN 3.5 g/dl (3.4-5.0); ANION GAP 7 mmol/L (4-13); BLOOD UREA NITROGEN 11.2 mg/dL (7-18); CALCIUM 9.1 mg/dL (8.5-10.1); CO2 25 mmol/L (21-32); GLUCOSE,RANDOM 91 mg/dL (74-106)
[2025-02-12 17:54] LABS: CREATININE 0.7 mg/dL (0.55-1.3); SGOT/AST 19 U/L (15-37); SGPT/ALT 21 U/L (13-61)
[2025-02-12 17:56] LABS: BILIRUBIN,TOTAL 0.2 mg/dL (0.2-1); TOT PROT 7.3 g/dl (6.4-8.2)
[2025-02-12 17:57] LABS: ALK PHOS 81 U/L (45-117)
== END 2025-02-12 21:19 | disposition home or self-care (01) ==
LOC: JER 16:06
PROC: 3E033GC Introduction of Other Therapeutic Substance into Peripheral Vein, Percutaneous Approach (ICD-10-PCS; principal; 2025-02-12)
PROC: 3E033NZ Introduction of Analgesics, Hypnotics, Sedatives into Peripheral Vein, Percutaneous Approach (ICD-10-PCS; 2025-02-12)
DX: R07.2 Precordial pain (principal); R11.2 Nausea with vomiting, unspecified
CPT/HCPCS: 36415; 71275-TC; 80053; 84484; 84702; 85025; 99285-25

== ENCOUNTER 2025-02-15 16:25 | Emergency (ER) | payer OTHER ==
[2025-02-15 16:37] VITALS: TEMP 98.7; BMI 35.5
[2025-02-15] MEDS ORDERED: ONDANSETRON 4 MG/2 ML VIAL ONE (18:44)
[2025-02-15] MEDS ORDERED: FAMOTIDINE 20 MG/50 ML IVPB 20 MG/50 ML MG IVPB ONE (18:44)
[2025-02-15] MEDS: ONDANSETRON 4 MG/2 ML VIAL IVPUSH ONE (19:20)
[2025-02-15 19:26] LABS: ABSOLUTE IMMATURE GRANULOCYTES 0.04 x10^3/uL (0.0-0.031); BASOPHILS # 0.02 x10^3/uL (0.01-0.08); EOSINOPHIL % 1.1 % (0.7-5.8); EOSINOPHILS # 0.12 x10^3/uL (0.04-0.36); HEMATOCRIT 45.4 % (34.1-44.9); HEMOGLOBIN 14.7 g/dL (11.2-15.7); MCHC 32.4 g/dl (32.2-35.5); MEAN CELL VOLUME 89.7 fl (79.4-94.8); MEAN PLT VOLUME 11.8 fl (9.4-12.3); MONOCYTE # 0.56 x10^3/uL (0.24-0.86); PLATELET COUNT 273 x10^3/uL (182-369); RDW 12.5 % (12.1-16.8)
[2025-02-15] MEDS: SODIUM CHLORIDE 0.9% 500 ML INFUS.BAG IV ONE (19:46)
[2025-02-15] MEDS: FAMOTIDINE 20 MG/50 ML IVPB 20 MG/50 ML MG IVPB ONE (19:46)
[2025-02-15 19:54] LABS: POTASSIUM 4.5 mmol/L (3.5-5.1)
[2025-02-15 19:56] LABS: CALCIUM 9.9 mg/dL (8.5-10.1)
[2025-02-15 19:57] LABS: ALBUMIN 3.8 g/dl (3.4-5.0); BLOOD UREA NITROGEN 10.3 mg/dL (7-18)
[2025-02-15 20:00] LABS: CREATININE 0.8 mg/dL (0.55-1.3)
[2025-02-15 20:01] LABS: BILIRUBIN,TOTAL 0.4 mg/dL (0.2-1); TOT PROT 8.2 g/dl (6.4-8.2)
[2025-02-15 21:36] VITALS: BP 122/75; PULSE 79; RESP 18
== END 2025-02-15 22:32 | disposition home or self-care (01) ==
LOC: JER 16:25
PROC: 3E033GC Introduction of Other Therapeutic Substance into Peripheral Vein, Percutaneous Approach (ICD-10-PCS; principal; 2025-02-15)
PROC: 3E033GC Introduction of Other Therapeutic Substance into Peripheral Vein, Percutaneous Approach (ICD-10-PCS; 2025-02-15)
DX: K21.9 Gastro-esophageal reflux disease without esophagitis (principal); K52.9 Noninfective gastroenteritis and colitis, unspecified; R10.13 Epigastric pain; R11.2 Nausea with vomiting, unspecified
CPT/HCPCS: 36415; 76705-TC; 80053; 83690; 85025; 93005; 93010; 99285-25